=== PATIENT | male | born 1965 | race Caucasian/White ===

== ENCOUNTER → 2016-11-09 | Outpatient (CLI) | payer BC ==
--- NOTE | 2016-11-10 08:38 | XR ---
EXAMINATION TYPE: XR hand complete RT DATE OF EXAM: 11/09/2016 3:04 PM CLINICAL HISTORY: pain TECHNIQUE: Frontal, lateral and oblique images of the right hand are obtained. COMPARISON: None. FINDINGS: There is no acute fracture/dislocation evident. The joint spaces appear within normal limi ts. The overlying soft tissue appears unremarkable. IMPRESSION: There is no acute fracture or dislocation ICD 10 NO FRACTURE, INITIAL EVALUATION
== END | disposition home or self-care (01) ==
LOC: RADXRYALE 14:53
PROVIDERS: ATTEND Family Medicine
DX: S69.91XA Unspecified injury of right wrist, hand and finger(s), initial encounter (principal)

== ENCOUNTER → 2023-01-25 | Outpatient (CLI) | payer BC, OTHER ==
[2023-01-25 18:00] LABS: Basophils # (A) 0.05 X 10*3/uL (0.00-0.10); Basophils % (A) 0.8 %; Eosinophils # (A) 0.12 X 10*3/uL (0.04-0.35); HCT 48.1 % (39.6-50.0); HGB 17.1 d/dL (13.0-17.0); Lymphocytes # (A) 2.91 X 10*3/uL (0.90-5.00); Lymphocytes % (A) 48.1 %; MCH 32.9 pg (27.0-32.0); MCHC 35.6 d/dL (32.0-37.0); MCV 92.5 FL (80.0-97.0); Mean Platelet Volume 12.4 FL (9.5-12.2); Monocytes # (A) 0.45 X 10*3/uL (0.20-1.00); Monocytes % (A) 7.4 %; NRBC Per 100 WBC 0 X 10*3/uL (0.00-0.01); Neutrophils # (A) 2.51 X 10*3/uL (1.80-7.70); Neutrophils % (A) 41.5 %; Platelet Count 186 X 10*3/uL (140-440); RDW 12.8 % (11.5-14.5); WBC 6.05 X 10*3/uL (4.50-10.00)
[2023-01-25 19:26] LABS: Anion Gap 10.5 mmol/L (4.00-12.00); Carbon Dioxide 26.5 mmol/L (21.6-31.8); Potassium 5.7 mmol/L (3.5-5.5)
== END | disposition home or self-care (01) ==
LOC: LABPAT 08:43
PROVIDERS: ATTEND Orthopaedic Surgery Hand Surgery
DX: Z01.812 Encounter for preprocedural laboratory examination (principal); I49.8 Other specified cardiac arrhythmias; R94.31 Abnormal electrocardiogram [ECG] [EKG]
CPT/HCPCS: 36415; 80051; 85025; 93005

== ENCOUNTER 2023-02-08 07:25 | Day surgery (SDC) | payer BC, OTHER ==
[2023-02-03 09:56] VITALS: BMI 27.9
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
[~2023-02-08 07:25] MED LIST: HYDROmorphone 0.5 MG/0.5 ML SYRINGE IVP PRN; LACTATED RINGERS 1,000 ML IV SCH; ONDANSETRON 4 MG/2 ML VIAL IVP ONE
[2023-02-08] MEDS ORDERED: LACTATED RINGERS 1,000 ML IV ONE (07:35)
[2023-02-08] MEDS ORDERED: ceFAZolin 1,000 MG in SODIUM CHLORIDE 0.9% 1,000 ML IRRIGATION ONE ×4 (07:37)
[2023-02-08] MEDS ORDERED: ONDANSETRON 4 MG/2 ML VIAL IVP ONE (08:15)
[2023-02-08 08:16] VITALS: RESP 16; TEMP 97.2
[2023-02-08] MEDS ORDERED: fentaNYL (PF) 50 MCG/ML 2 ML AMP ONE (08:32)
[2023-02-08] MEDS ORDERED: LIDOCAINE 2% INJ 20 MG/ML (2 ML VIAL) ONE (08:32)
[2023-02-08] MEDS ORDERED: MIDAZOLAM 2 MG/2 ML VIAL ONE (08:32)
[2023-02-08] MEDS ORDERED: PROPOFOL 10 MG/ML 20 ML VIAL IV ONE (08:32)
[2023-02-08] MEDS ORDERED: BUPIVACAINE (PF) 0.5% 30 ML VIAL SQ ONE (08:40)
[2023-02-08] MEDS ORDERED: LIDOCAINE 2% (PF) 20 MG/ML 10 ML AMP SQ ONE (08:40)
[2023-02-08 09:55] VITALS: BP 117/77; PULSE 55
--- NOTE | 2023-02-08 11:51 | P.OP ---
Date of Procedure: 02/08/23 Preoperative Diagnosis: Right elbow painful ossific fragment Postoperative Diagnosis: Right elbow painful ossific fragment Procedure(s) Performed: Right elbow partial excision of olecranon process due to painful ossific fragement. ([id number]) Anesthesia: MAC Surgeon: Lucho Pandya School Clerk #1: Ricci Lemon Estimated Blood Loss (ml): 0 Pathology: none sent Condition: stable Disposition: PACU Description of Procedure: This is a 57 year old male who presents today for a right elbow painful ossific fragment removal after having failed conservative treatment. Risks and benefits of surgery were discussed with the patient including bleeding, damage to surroun ding tissue, infection, need for further surgery as well as risks of anesthesia including pulmonary embolism and even and the patient wished to proceed with surgical intervention. The patient was seen in the pre-operative area by myself. Consent and H&P were completed and updated. The correct extremity was marked in the pre-operative area by myself and all other questions were answered. Operative Narrative: The patient was brought to the operating room by the department of anesthesia. They remained on the portable stretcher and a rolling hand table was brought to the side of the operative extremity. Pre-operative time out was performed indicating the correct patient, procedure and laterality. All in the room agreed. Pre-operative antibiotics were given prior to skin incision. The patient was then drifted off to sleep by the department of anesthesia. Local block was performed with 7cc's of 0.5% Lidocaine and 1% lidocaine in a 50:50 mixture in the subcutaneous tissues around the posterior olecranon. A nonsterile tourniquet was then applied to the operative extremity and the right upper extremity was then prepped and draped in normal sterile fashion. The operative extremity was the exsanguinated with an esmarch bandage and the tourniquet was inflated to 250mmHg. Longitudinal incision made with 15 blade scalpel over the posterior olecranon at the point of the palpable ossific fragement. Blunt dissection was taken down through subcutaneous tissues. The fragment was localized on intra-operative C- arm and appeared to be deep to the triceps tendon insertion. A small 1cm longitudinal split was made in the triceps tendon and the fractured posterior bone fragment from the olecranon measuring 3mm was identified and excised with scalpel and rongeur. After fragment excision was performed, it was confirmed with mini C-arm the the fragment was successfully excised. The wound was then irrigated and skin closure was performed with interrupted 4-0 nylon suture followed by adaptic, 4x4s, cast padding and an alysha wrap. Tourniquet was let down and the hand had immediate perfusion. Ricci MORALES was present to assist in the case. The patient was then woken by the department of anesthesia and transferred to PACU in stable condition. Lucho Pandya D.O. Orthopedic Hand/Upper Extremity Surgeon
== END 2023-02-08 10:00 | disposition home or self-care (01) ==
LOC: OR 07:25
PROVIDERS: ATTEND Orthopaedic Surgery Hand Surgery
DX: M24.021 Loose body in right elbow (principal); F10.90 Alcohol use, unspecified, uncomplicated; Z80.0 Family history of malignant neoplasm of digestive organs; Z79.1 Long term (current) use of non-steroidal anti-inflammatories (NSAID)
CPT/HCPCS: 24147; 84132; J2250; J2001 ×2; J2405; J0690; J3010; J2704; J0665

== ENCOUNTER → 2024-02-28 | Outpatient (CLI) | payer BC, OTHER ==
--- NOTE | 2024-02-28 11:46 | XR ---
EXAMINATION TYPE: XR cervical spine comp DATE OF EXAM: 02/28/2024 11:38 AM INDICATION: Patient age:Male; 58 years old; Reason for study: M542,R202,R292 CERVICALGIA,PARESTHESIA SKIN; YCH. COMPARISON: None TECHNIQUE: The cervical spine was imaged in 4 projections. Frontal, lateral, odontoid and bilateral o blique. FINDINGS: The osseous structures show normal alignment without evidence of an acute fracture. The intervertebr al disk spaces are preserved. Pedicles are intact. Soft tissues are within normal limits. The odont oid appears intact. IMPRESSION: 1. No fracture or dislocation. 2. No radiographic evidence for significant degenerative disc disease.
== END | disposition home or self-care (01) ==
LOC: RADXRYALE 11:06
PROVIDERS: ATTEND Family Medicine
DX: M54.2 Cervicalgia (principal); R20.2 Paresthesia of skin; R29.2 Abnormal reflex
CPT/HCPCS: 72050

== ENCOUNTER → 2024-03-11 | Outpatient (CLI) | payer OTHER, BC ==
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
== END | disposition home or self-care (01) ==
LOC: RADMRIMAIN 17:39
PROVIDERS: ATTEND Family Medicine
DX: M50.323 Other cervical disc degeneration at C6-C7 level (principal); M50.222 Other cervical disc displacement at C5-C6 level; R20.2 Paresthesia of skin; R29.2 Abnormal reflex
CPT/HCPCS: 72141

== ENCOUNTER → 2024-03-25 | Outpatient (CLI) | payer BC, OTHER ==
[2024-03-25 08:08] VITALS: BP 143/91; PULSE 53; RESP 16; TEMP 96.9
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
== END | disposition home or self-care (01) ==
LOC: PNWHC3 07:19
PROVIDERS: ATTEND Specialist
DX: M50.322 Other cervical disc degeneration at C5-C6 level (principal); M50.323 Other cervical disc degeneration at C6-C7 level
CPT/HCPCS: 99211

== ENCOUNTER 2024-08-27 09:03 | Day surgery (SDC) | payer BC ==
[2024-08-23 13:02] VITALS: BMI 29.4
[~2024-08-27 09:03] MED LIST changes: -HYDROmorphone 0.5 MG/0.5 ML SYRINGE IVP PRN; -ONDANSETRON 4 MG/2 ML VIAL IVP ONE
[2024-08-27 09:29] VITALS: TEMP 97.2
[2024-08-27] MEDS ORDERED: IOPAMIDOL M300 15ML VIAL ONE (10:19)
[2024-08-27] MEDS ORDERED: DEXAMETHASONE SOD PHOSPHATE 10 MG/ML 1 ML VIAL ONE (10:19)
[2024-08-27 10:46] VITALS: RESP 16
--- NOTE | 2024-08-27 10:48 | FL ---
EXAMINATION TYPE: FL guided pain mgmt statistic DATE OF EXAM: 08/27/2024 CLINICAL INDICATION: Male, 59 years old with history of Cerv Epid Inj; PHH, pain TECHNIQUE: Fluoroscopy. COMPARISON: None. FINDINGS: Fluoroscopic guidance was provided during pain relief procedure performed by Dr. Damon . A total of 27.4 seconds of fluoroscopic time was utilized during the procedure and one image was acqu ired. Image acquired shows needle localization in the lower cervical spine. Degeneration changes of the visualized joints. Total DAP: 0.00590 mGym2. IMPRESSION: As Above. [facility], , 08/27/2024 10:46 AM
--- NOTE | 2024-08-27 10:48 | P.PCN ---
Description of Procedure: PROCEDURE 1. Injection of radio contrast material into cervical epidural space, cervical epidurogram, interpretation of cervical epidurogram, Cervical epidural steroid injection under fluoroscopic guidance, C6-7 (fluoroscopy images available in the radiology department ) 2. Cervical epidurogram. PREOPERATIVE DIAGNOSIS: 1- Cervical Degenerative Disc Diseases 2- Cervical radiculopathy., 3-cervical spondylosis with cervical Facet arthropathy without myelopathy.4-cervical spinal stenosis POSTOPERATIVE DIAGNOSIS: : 1- Cervical Degenerative Disc Diseases , 2- Cervical radiculopathy. 3-,cervical spondylosis with cervical Facet arthropathy without myelopathy. 4-cervical spinal stenosis ANESTHESIA: Local anesthetics infiltration. In the OR continuous pulse ox, EKG, blood pressure and verbal communication was maintained. EBL : None PROCEDURE INDICATION: The patient with neck pain and radiculitis unresponsive to conservative treatment consents for procedure. Discussed the procedure, alternatives and possible complications which may include increased pain, infection, bleeding, nerve damage, paralysis all of which could be permanent. Patient understands and all questions were answered. PROCEDURE DESCRIPTION : After getting consent patient was taken to the OR , positioned in prone position and time out was completed. A pillow was placed under the patients chest to increase the cervical interlaminar space. The cervical area was prepped and draped in the usual sterile fashion. Using anterior-posterior fluoroscopy, interlaminar space was identified and the skin over this site was marked and then infiltrated with 1% lidocaine subcutaneously. Subsequently, a 20-gauge 3-1/2-inch Tuohy epidural needle was inserted and advanced toward the epidural space with the loss of resistance technique using a syringe filled with preservative-free normal saline and guided by AP and lateral fluoroscopy. Negative CSF, negative blood, negative paresthesia. The correct needle position in the epidural space was verified with the injection of 2 mL of the water soluble contrast dye [id number] and observing an excellent epidurogram with the epidural spread of the dye, after repeat negative aspiration 3 mL solution was injected which consists of 1 mL of preservative-free normal saline mixed with 2 mL of 20 mg dexamethasone and a washout of epidurogram was seen. Needle was withdrawn intact, skin was cleansed, and bandages were applied. Disposition: Patient tolerated the procedure well. No complication. Patient was placed in supine position and transferred to the recovery room area in stable condition and there was no evidence of upper or lower extremity motor or sensory deficit after the procedure patient was discharged from recovery room after discharge criteria met and home discharge instructions was given by the staff and patient will follow with the pain clinic in 2-4 weeks
[2024-08-27 10:55] VITALS: BP 132/87; PULSE 50
== END 2024-08-27 11:11 | disposition home or self-care (01) ==
LOC: ORPAIN 09:03
PROVIDERS: ATTEND Pain Medicine Interventional Pain Medicine
DX: M50.123 Cervical disc disorder at C6-C7 level with radiculopathy (principal); M47.22 Other spondylosis with radiculopathy, cervical region; M48.02 Spinal stenosis, cervical region
CPT/HCPCS: 62321; J1100; Q9967